=== PATIENT | female | born 1990 | race Asian ===

== ENCOUNTER 2016-11-20 22:12 | Emergency (ER) | payer MEDICAID ==
[2016-11-20 22:57] LABS: BASOPHILS 0.7 % (0.0-2.0); EOSINOPHILS 3.1 % (0.0-6.0); EOSINOPHILS# 0.2 X 10^3uL (0.0-0.4); HEMATOCRIT 31.3 % (36.0-48.0); HEMOGLOBIN 10.3 g/dL (12.0-16.0); LYMPHOCYTES# 2.6 X 10^3uL (0.8-3.8); MEAN CELL VOLUME 81.3 fL (80.0-100.0); MEAN CORPUSCULAR HEMOGLOBIN 26.8 pg (29.0-35.0); MONOCYTES 4.6 % (2.0-10.0); MONOCYTES# 0.3 X 10^3uL (0.2-1.0); NEUTROPHILS 53.6 % (54.0-75.0); NEUTROPHILS# 3.7 X 10^3uL (2.6-6.7); PLATELET COUNT 304 X 10^3uL (130-440); RED BLOOD COUNT 3.85 X 10^6uL (4.20-6.10); RED CELL DISTRIBUTION WIDTH 14.9 % (11.5-14.5); WHITE BLOOD COUNT 6.8 X 10^3uL (3.9-10.7)
[2016-11-20 23:10] LABS: BLOOD UREA NITROGEN 16 mg/dL (7-17); CALCIUM 8.8 mg/dL (8.4-10.2); CHLORIDE 104 mmol/L (98-107); EST GLOMERULAR FILTRATION RATE > 60 mL/min; GLUCOSE 105 mg/dL (70-100); MAGNESIUM 1.7 mg/dL (1.6-2.3); POTASSIUM 3.8 mmol/L (3.5-5.1); SODIUM 139 mmol/L (137-145)
[2016-11-20 23:22] LABS: TROPONIN I < 0.012 ng/mL (0.00-0.034)
--- NOTE | 2016-11-21 00:07 | ER NURSING DOCUMENTATION ---
Nurse's Notes [facility] Name:Jillian Freedman Age:26 yrs Sex:Female :1990 Arrival Date:11/20/2016 Time:22:12 BedTrauma-A Private MD: Diagnosis:Dyspnea-: 2nd to High Altitude Illness;Musculoskeletal Chest Pain;Anemia Presentation: 11/20 22:26 Presenting complaint: Patient states: SOB, in [place] since Wednesday, from [place]. sj Went up to [place] earlier today. Mid-sternal chest discomfort. Transition of care: patient was not received from another setting of care. AIR CAT ACTIVATION no. 22:26 Acuity: JOAQUIN 3 sj 22:26 Method Of Arrival: Private Vehicle 22:53 Asprin Given n/a. Notified ED Physician of Dr. Valladares notified. lb Triage Assessment: 22:28 General: Appears comfortable, Behavior is cooperative, pleasant. Pain: Complains of sj pain in mid-sternal. Cardiovascular: Capillary refill < 3 seconds Heart tones S1 S2 Chest pain radiates does not radiate. Respiratory: Airway is patent Breath sounds are clear bilaterally. 22:39 Cardiovascular: Reports shortness of breath Denies Rhythm is sinus rhythm Chest pain sj radiates back and bilateral anterior chest. Historical: - Allergies: No known drug Allergies; - Home Meds: 1. None - PSHx: cesearean section x2; - Tetanus: < 10 years. - Ebola Screening: : Patient negative for fever greater than or equal to 101.5 degrees Fahrenheit, and additional compatible Ebola Virus Disease symptoms. Patient denies exposure to infectious person. Patient denies travel to an Ebola-affected area in the 21 days before illness onset. No symptoms or risks identified at this time. . - Immunization history: Pneumococcal vaccine is not up to date, Patient has never been vaccinated Flu Vaccine None. - Social history: Smoking status: Patient states was never smoker of tobacco. Screenin:39 Infectious Disease Risk None. Abuse screen: Denies threats or abuse. Denies injuries sj from another. Nutritional screening: No deficits noted. Assessment: 22:38 See Triage Assessment done by same RN. sj Vital Signs: 22:34 BP 133 / 83; Pulse 73; Resp 15; Temp 98.1(TE); Pulse Ox 96% on R/A; Weight 102.06 kg; sj Height 5 ft. 5 in. (165.10 cm); Pain 5/10; 23:34 BP 145 / 74; Pulse 72; Resp 14; Pulse Ox 96% on R/A; Pain 0/10; lb 23:51 BP 119 / 68; Pulse 83; Resp 15; Pulse Ox 99% on R/A; Pain 0/10; lb 22:34 Body Mass Index 37.44 (102.06 kg, 165.10 cm) [place] Coma Score: 22:44 Eye Response: spontaneous(4). Verbal Response: oriented(5). Motor Response: obeys cd commands(6). Total: 15. ED Course: 22:00 Notified ED Physician of patient's arrival and chief complaint. Dr. Valladares notified. sj 22:13 Patient arrived in ED. ma 22:13 Francisco Valladares MD is Attending Physician. cd 22: Corry Becker is Primary Nurse. sj 22:28 Triage completed. sj 22:39 Valuables Remains with patient Patient has correct armband on for positive sj identification. Placed in gown. Bed in low position. Call light in reach. Side rails up X 1. cardiac monitor on. Pulse ox on. NIBP on. 22:39 EKG done. (by ED staff). Reviewed by Francisco Valladares MD. sj 22:56 EKG attached mv Administered Medications: No medications were administered Output: 23:00 Urine: 400ml (Voided); Total: 400ml. lb Outcome: 23:51 Discharged to home ambulatory. lb 23:51 Condition: good 23:51 Discharge Assessment: Patient awake, alert and oriented x 3. No cognitive and/or functional deficits noted. Patient verbalized understanding of disposition instructions. 23:51 Instructed on discharge instructions, follow up and referral plans. 23:55 Discharge ordered by . cd 11/21 00:06 Patient left the ED. lb Signatures: Francisco Valladares MD MD cd vogel, margaux mv Janzen, Sarah sj Bollock, Lynda lb Addison, Melissa [facility]
--- NOTE | 2016-11-21 00:07 | ER PHYSICIAN DOCUMENTATION ---
Physician Documentation [facility] Name:Jillian Freedman Age:26 yrs Sex:Female :1990 Arrival Date:11/20/2016 Time:22:12 BedTrauma-A Private MD: Francisco Becker Disposition: 11/20 23:54 Critical Care: not applicable. cd Disposition: 11/20/16 23:55 Discharged to Home/Self Care. Impression: Dyspnea - : 2nd to High Altitude Illness, Musculoskeletal Chest Pain, Anemia. - Condition is Good. - Discharge Instructions: CHEST WALL STRAIN, DYSPNEA, Anemia, Iron Deficiency - ANEMIA, Iron Deficiency (Adult). - Medical Reconciliation form form. - Follow up: Private Physician; When: 7 - 10 days; Reason: Recheck today's complaints, Continuance of care. - Problem is new. - Symptoms are resolved. - Notes: Drink plenty of fluids. Rest. No hiking or going to higher elevation. Avoid alcohol. Start taking Iron pills every day to build up your blood count. Tylenol for headaches. HPI: 22:34 This 26 yrs old Female presents to ER via Private Vehicle with cd complaints of Chest Pressure, Shortness Of Breath, Headache. 22:34 The patient or guardian reports chest pain that is located primarily in the anterior cd chest wall. The pain does not radiate. There has been no movement of pain. Associated signs and symptoms: Pertinent positives: headache, shortness of breath, Pertinent negatives: abdominal pain, cough, diaphoresis, lower extremity pain, lower extremity swelling, lightheadedness, nausea, palpitations, syncope, vomiting. The chest pain is described as aching. Duration: The patient or guardian reports a single episode. Severity of pain: At its worst the pain was mild in the emergency department the pain is unchanged. Risk factors for coronary artery disease include: This patient does not have any risk factors for coronary artery disease. The risk factors for pulmonary embolism include: This patient is morbid obese. This patient is post . This patient has been traveling recently. The patient has not experienced similar symptoms in the past. Patient arrived to [place] 2 days ago from [place]. She went [place] the [place] today (14 [place] elevation) and then she went high into [facility] at 9,000 ft elevation this afternoon. Started having Anterior Chest pain , SOB and headache today. She reports anemia and is Post- by 3 months. She has no history of CAD, PE, Lung or heart problems.. Historical: - Allergies: No known drug Allergies; - Home Meds: 1. None - PSHx: cesearean section x2; - Tetanus: < 10 years. - Ebola Screening: : Patient negative for fever greater than or equal to 101.5 degrees Fahrenheit, and additional compatible Ebola Virus Disease symptoms. Patient denies exposure to infectious person. Patient denies travel to an Ebola-affected area in the 21 days before illness onset. No symptoms or risks identified at this time. . - Immunization history: Pneumococcal vaccine is not up to date, Patient has never been vaccinated Flu Vaccine None. - Social history: Smoking status: Patient states was never smoker of tobacco. ROS: 22:43 ENT: Negative for injury, pain, epistaxis and discharge. cd Neck: Negative for injury, pain, stiffness and swelling. Abdomen/GI: Negative for abdominal pain, nausea, vomiting, diarrhea, constipation, distension, melena, hematochezia and hematemesis. Back: Negative for injury, pain or muscle spasms. : Negative for injury, bleeding, discharge, dysuria, frequency, urgency and swelling. MS/Extremity: Negative for injury, deformity, edema, calf tenderness, pain or coldness. Skin: Negative for injury, rash, itching and discoloration. 22:43 Neuro: Negative for headache, weakness, numbness, tingling, and seizure. cd 22:43 Constitutional: Positive for poor PO intake, Negative for chills, fever. 22:43 Cardiovascular: Positive for chest pain, Negative for edema, orthopnea, palpitations. 22:43 Respiratory: Positive for shortness of breath, Negative for cough, hemoptysis, pleurisy, wheezing. 22:43 All other systems are negative. Exam: ENT: Nares patent. No nasal discharge, no septal abnormalities noted. Tympanic membranes are normal and external auditory canals are clear. Oropharynx with no redness, swelling, or masses, exudates, or evidence of obstruction, uvula midline. Mucous membranes dry 22:44 Neck: Trachea midline, no thyromegaly or masses palpated, and no cervical cd lymphadenopathy. Supple, full range of motion without nuchal rigidity, or vertebral point tenderness. No Meningismus. 22:44 Constitutional: The patient appears in no acute distress, alert, awake, non-diaphoretic, non-toxic, well developed, well nourished, obese. 22:44 Chest/axilla: Inspection: normal, Palpation: tenderness, that is mild, that totally reproduces the patient's complaints. 22:44 Cardiovascular: Rate: normal, Rhythm: regular, Pulses: no pulse deficits are appreciated, Heart sounds: normal, Edema: is not appreciated. 22:44 Respiratory: the patient does not display signs of respiratory distress, Respirations: normal, no acute changes, Breath sounds: are normal, clear throughout. 22:44 Abdomen/GI: Inspection: abdomen appears normal, Bowel sounds: normal, Palpation: abdomen is soft and non-tender, Indicators: Vu's sign is negative. 22:44 Back: Exam negative for acute changes. 22:44 Musculoskeletal/extremity: Exam is negative for acute changes, DVT Exam: No signs of deep vein thrombosis. 22:44 Skin: Appearance: Color: pale, mildly. 22:44 Neuro: Exam negative for acute changes. Vital Signs: 22:34 BP 133 / 83; Pulse 73; Resp 15; Temp 98.1(TE); Pulse Ox 96% on R/A; Weight 102.06 kg; sj Height 5 ft. 5 in. (165.10 cm); Pain 5/10; 23:34 BP 145 / 74; Pulse 72; Resp 14; Pulse Ox 96% on R/A; Pain 0/10; lb 23:51 BP 119 / 68; Pulse 83; Resp 15; Pulse Ox 99% on R/A; Pain 0/10; lb 22:34 Body Mass Index 37.44 (102.06 kg, 165.10 cm) Phil Coma Score: 22:44 Eye Response: spontaneous(4). Verbal Response: oriented(5). Motor Response: obeys cd commands(6). Total: 15. MDM: 22:13 Patient medically screened. cd 22:20 Differential diagnosis: acute pericarditis, anxiety, chest wall pain, cholecystitis, cd esophagitis, pulmonary embolus. Data interpreted: monitoring manager: rate is 73 beats/min, rhythm is normal sinus rhythm, regular, with no ectopy, Interpretation: normal rate, normal rhythm, Pulse oximetry: on room air is 96 %. Interpretation: normal. 22:46 ECG:. cd 22:48 The patient was not given aspirin in the Emergency Department. Patient did not receive cd fibrinolytic due to not indicated. CHANCE Risk Score: TOTAL SCORE = 0. Data reviewed: vital signs, nurses notes, old medical records, EKG, and as a result, I will continue to observe the patient. 22:56 EKG attached 23:58 Response to treatment: the patient's symptoms have resolved after treatment, the patient's condition has returned to base line, and as a result, I will discharge patient. 11/20 23:14 Order name: CBC AUTO DIF, MDIF/RMOR IF IND; Complete Time: 23:54 EDMS 11/20 23:17 Interpretation: Normal Except: HEMOGLOBIN 10.3; HEMATOCRIT 31.3; Anemia. 11/20 23:15 Order name: BASIC METABOLIC PANEL; Complete Time: 23:54 EDMS 05 23:17 Interpretation: Normal. 11/20 23:15 Order name: MAGNESIUM; Complete Time: 23:54 EDMS 11/20 23:17 Interpretation: Normal. 11/20 23:38 Order name: TROPONIN I; Complete Time: 23:54 EDMS 11/20 23:49 Interpretation: Normal. 11/20 23:42 Order name: DDIMER; Complete Time: 23:54 EDMS 05/12 23:49 Interpretation: Normal. 11/20 22:14 Order name: 12-lead EKG; Complete Time: 23:13 11/20 22:14 Order name: Place Patient On Monitor; Complete Time: 23:14 11/20 22:14 Order name: Pulse Ox Continuous; Complete Time: 23:13 cd EC:20 Rate is 88 beats/min. Rhythm is regular. QRS [place] is Normal. [place] interval is normal. QRS cd interval is normal. QT interval is normal. No Q waves. T waves are Normal. No ST changes noted. Clinical impression: Normal ECG and No evidence of ischemia. Interpreted by me. Dispensed Medications: No medications were administered Signatures: Francisco Valladares MD MD cd vogel, margaux mv Janzen, Sarah sj Bollock, Lynda lb
== END 2016-11-21 00:07 | disposition home or self-care (01) ==
LOC: ER 22:12
DX: R06.00 Dyspnea, unspecified (principal); R07.81 Pleurodynia; D64.9 Anemia, unspecified; T70.29XA Other effects of high altitude, initial encounter; E86.0 Dehydration; E66.9 Obesity, unspecified
CPT/HCPCS: 36415; 80048; 83735; 84484; 85025; 85379; 93005; 99284